=== PATIENT | male | born 1960 | race African-American/Black ===

== ENCOUNTER 2025-08-18 10:07 | Emergency (ER) | payer OTHER ==
[~2025-08-18] VITALS: Ht 190.5 cm; Wt 94.9 kg
[2025-08-18 10:12] VITALS: TEMP 97.4
[2025-08-18 10:36] LABS: PLATELET COUNT (AUTO) 222 K/uL (150-450); RED BLOOD CELL COUNT(AUTO) 4.58 MIL/uL (4.50-5.90); RED CELL DISTRIBUTION WIDTH 14.4 % (11.5-14.5); WHITE BLOOD COUNT (AUTO) 6.3 K/uL (4.5-11.0)
[2025-08-18 10:43] LABS: CALCIUM, TOTAL 9.8 mg/dL (8.8-10.5); CREATININE 0.97 mg/dL (0.60-1.30); GLOMERULAR FILTR. RATE CALC > 60 mL/min (>60); GLUCOSE,RANDOM 105 mg/dL (70-110); SODIUM SERUM 141 mmol/L (136-145); UREA NITROGEN, BLOOD 12 mg/dL (7-18)
[2025-08-18 10:51] LABS: TROPONIN I-HIGH SENSITIVITY 7 ng/L (<76)
[2025-08-18 11:11] VITALS: BP 163/113; PULSE 72; RESP 18; O2SAT 99
[2025-08-18 11:22] LABS: PH,URINE DRUG SCREEN 7.0 (5.0-8.0)
[2025-08-18 11:34] LABS: ALCOHOL, URINE DRUG SCREEN NEGATIVE (NEGATIVE); AMPHET/METH SCREEN,URINE POSITIVE (NEGATIVE); BARBITURATE SCREEN, URINE NEGATIVE (NEGATIVE); CANNABINOID SCREEN,URINE NEGATIVE (NEGATIVE); COCAINE SCREEN,URINE NEGATIVE (NEGATIVE); METHADONE SCREEN, URINE NEGATIVE (NEGATIVE)
== END 2025-08-18 13:47 | disposition home or self-care (01) ==
LOC: EMS 10:07
DX: T39.1X1A Poisoning by 4-Aminophenol derivatives, accidental (unintentional), initial encounter (principal); I10 Essential (primary) hypertension; Z88.8 Allergy status to other drugs, medicaments and biological substances; Y92.89 Other specified places as the place of occurrence of the external cause
CPT/HCPCS: 99284; 80048; 84484; 85025; 36415; 93005; 80307; G0480; G0481